=== PATIENT | female | born 1940 | race Caucasian/White ===

== ENCOUNTER 2022-11-20 17:00 | Emergency (ER) | payer MEDICAID ==
[~2022-11-20] VITALS: Ht 152.4 cm; Wt 55.5 kg
[2022-11-20 17:08] VITALS: BP 146/77
[2022-11-20] MEDS ORDERED: LORA5TAB8 MT (17:52)
[2022-11-20] MEDS ORDERED: LORATADINE 10MG TABLET PO SCH (18:00)
[2022-11-23] MEDS ORDERED: ATOR20TA65 MT (15:25)
[2022-11-23] MEDS ORDERED: METF-416 MT (15:25)
[2022-11-23] MEDS ORDERED: GLIP10TA10 PO (15:25)
[2022-11-23] MEDS ORDERED: LISI20TA31 MT (15:25)
[2022-11-23] MEDS ORDERED: DOCU-150 MT (15:25)
[2022-11-25] MEDS ORDERED: OSEL30CA2 PO (12:56)
[2022-11-25] MEDS ORDERED: LEVO750T68 MT (12:56)
== END 2022-11-20 18:15 | disposition home or self-care (01) ==
LOC: ER 17:00
DX: R21 Rash and other nonspecific skin eruption (principal); E11.9 Type 2 diabetes mellitus without complications
CPT/HCPCS: 99281

== ENCOUNTER 2025-01-30 13:24 | Emergency (ER) | payer MEDICAID ==
[~2025-01-30] VITALS: Ht 147.3 cm; Wt 65.0 kg
[~2025-01-30 13:24] MED LIST: ATOR20TA65 MT; DOCU-422 MT; GLIP10TA17 PO; LEVO750T68 MT; LISI20TA31 MT; LORA5TAB8 MT; METF-416 MT; OSEL30CA2 PO
[2025-01-30 13:33] VITALS: TEMP 36.9; O2SAT 100
[2025-01-30] MEDS ORDERED: ACET-2708 MT (15:43)
[2025-01-30 16:14] VITALS: BP 195/72; PULSE 71; RESP 16; O2SAT 99
== END 2025-01-30 16:17 | disposition home or self-care (01) ==
LOC: ER 13:24
DX: S90.31XA Contusion of right foot, initial encounter (principal); E11.9 Type 2 diabetes mellitus without complications; Z90.49 Acquired absence of other specified parts of digestive tract; Z79.899 Other long term (current) drug therapy; W22.8XXA Striking against or struck by other objects, initial encounter; Y93.89 Activity, other specified; Y92.89 Other specified places as the place of occurrence of the external cause; Y99.8 Other external cause status
CPT/HCPCS: 73630; 99283